=== PATIENT | female | born 1990 | race Caucasian/White ===

== ENCOUNTER 2021-08-22 17:28 | Emergency (ER) | payer OTHER ==
[2021-08-22] MEDS ORDERED: Boostrix 0.5 ML (Tdap) VIAL ONE (17:46)
[2021-08-22] MEDS ORDERED: Lidocaine 1% w/Epinephrine 1:100K 20 ML VIAL ONE (17:46)
[2021-08-22] MEDS ORDERED: CEFAZOLIN 1 GM VIAL ONE (18:30)
[2021-08-22] MEDS ORDERED: Sodium Chloride 0.9% 100 ML ONE (18:31)
[2021-08-22 19:02] LABS: #Basophils 0.1 thou/uL (0.0-0.2); #Eosinphils 0.3 thou/uL (0.0-0.7); #Lymphocytes 2.1 thou/uL (1.20-3.40); #Monocytes 0.9 thou/uL (0.11-0.59); #Neutrophils 7.8 thou/uL (1.40-6.50); %Basophils 1.3 % (0.0-1.0); %Eosinophils 2.4 % (0.0-10.0); %Lymphocytes 18.8 % (21.0-51.0); %Monocytes 8.1 % (0.0-10.0); %Neutrophils 69.4 % (42.0-75.0); Hemoglobin 14.7 g/dL (12.0-16.0); Mean Corpuscular HGB CONC 33.4 g/dL (32.0-36.0); Mean Platelet Volume 5.9 fL (7.4-10.4); Platelet Count 308 thou/uL (130-400); RBC Distribution Width 10.9 % (11.5-14.5); Red Blood Cell (RBC) Count 4.74 mill/uL (4.20-5.40); White Blood Cell (WBC) Count 11.2 thou/uL (4.8-10.8)
[2021-08-22 19:08] LABS: BHCG - Serum Negative (NEGATIVE); Pregs Control Background? CLEAR/WHITE (CLR/WHITE); Pregs Control Bar Appear? YES (CONTROL BAR)
[2021-08-22 19:09] LABS: INR-International Normal Ratio 0.9; Prothrombin Time 12.1 sec (12.0-14.7)
[2021-08-22 19:10] LABS: PTT 26.6 sec (22.9-36.1)
[2021-08-22 19:17] LABS: Anion Gap 15 mmol/L (10-20); BUN (Urea Nitrogen) 15 mg/dL (7.0-18.7); Calc. Creatinine Clearance 0 mL/min (70-130); Calcium 10.3 mg/dL (7.8-10.44); Carbon Dioxide 24 mmol/L (22-29); Chloride 103 mmol/L (98-107); Glucose 109 mg/dL (70-105); Potassium 3.6 mmol/L (3.5-5.1); Sodium 138 mmol/L (136-145)
[2021-08-22] MEDS ORDERED: Morphine 4 MG/ML VIAL ONE (21:00)
== END 2021-08-22 21:05 | disposition short-term general hospital (02) ==
LOC: MADERS 17:28
DX: S92.311B Displaced fracture of first metatarsal bone, right foot, initial encounter for open fracture (principal); Z87.891 Personal history of nicotine dependence; W31.2XXA Contact with powered woodworking and forming machines, initial encounter
CPT/HCPCS: 12044; 80048; 84703; 85025; 85610; 85730; 90471; 90715; 96365; 96375; J0690; J2270; J3490